=== PATIENT | female | born 1995 | race Hispanic/Latino ===

== ENCOUNTER 2018-11-17 17:51 | Inpatient (IN) ==
[2018-11-17] MEDS ORDERED: PEPCID PO PRN (18:23)
[2018-11-17] MEDS ORDERED: KEFZOL 1 GM/D5W 1 GM/50 ML IVPB IV PRN (18:23)
[2018-11-17] MEDS ORDERED: PEPCID IV PRN (18:23)
[2018-11-17] MEDS ORDERED: PEPCID PO ONE (18:23)
[2018-11-17] MEDS ORDERED: STADOL IV PRN (18:23)
[2018-11-17] MEDS ORDERED: AMPICILLIN 2 GM/NS 2 GM/100 ML IVPB IV ONE (18:23)
[2018-11-17] MEDS ORDERED: ZOFRAN IV PRN (18:23)
[2018-11-17] MEDS ORDERED: REGLAN PO ONE (18:23)
[2018-11-17] MEDS ORDERED: LR 1,000 ML IV SCH (18:30)
[2018-11-17] MEDS ORDERED: PITOCIN 30 UNITS/NS 30 UNIT/500 ML IV.SOLN IV SCH ×2 (18:30→23:45)
[2018-11-17] MEDS ORDERED: SODIUM CHLORIDE 0.9% INJ SCH (18:30)
[2018-11-17] MEDS ORDERED: MINERAL OIL TOP PRN (18:45)
[2018-11-17] MEDS ORDERED: XYLOCAINE-MPF 1% INJ PRN ×2 (18:46→23:33)
[2018-11-17 19:16] LABS: BASO# 0.01 X1000 (0.0-0.2); BASO% 0.1 % (0.0-0.8); EOS# 0.03 X1000 (0.0-0.7); EOS% 0.3 % (0.0-10.0); HEMOGLOBIN 7.7 g/dL (12.0-16.0); LYMPH# 1.89 X1000 (1.2-3.4); LYMPH% 18.3 % (20.5-51.1); MCH 20.5 PG (27-31); MCHC 29.6 g/dL (33-37); MCV 69.3 FL (81-99); MONO# 0.82 X1000 (0.11-0.59); MONO% 7.9 % (1.7-9.3); NEUT# 7.47 X1000 (1.4-6.5); NEUT% 72.4 % (42.2-75.2); PLT 284 X1000 (130-400); RBC 3.75 XMIL (4.2-5.4); RDW 17.6 % (11.5-14.5); WBC 10.32 X1000 (4.8-10.8)
[2018-11-17 19:36] LABS: LYMPHS 19 % (21-51); MONO 8 % (1-9); SEGS 73 % (42-75)
[2018-11-17 19:39] LABS: RAPID HIV PRESUMPTIVE NEGATIVE; RPR NON-REACTIVE (NONREACTIVE)
--- NOTE | 2018-11-17 20:34 | Diag Imaging Result Doc PS360 ---
EXAM: US OBS COMPLETE > 14 WKS 11/17/2018 HISTORY: in labor/dates STAT TECHNIQUE: OB ultrasound transabdominal scan COMMENT: This is the third study for this . Previous examinations were performed on 06/25/2018 and 08/09/2018. There is a viable fetus with a heart rate of 136 bpm in cephalic presentation. The cervix is not well demonstrated. The amniotic fluid volume is within normal limits. The placenta is anterior and there is no evidence of placenta previa. Based on multiple parameters the estimated weight is 3689 g +/- 428 g. Based on the earliest available study on 06/25/2018 the estimated date of delivery is 11/23/2018. The gestational age would therefore be 39 weeks one day. There is a three-vessel cord, four chambered heart, normal bladder, kidneys, stomach, and spine. IMPRESSION: Viable intrauterine gestation at 39 weeks one day by previous ultrasound. Electronically signed by Monty Glasgow 11/17/2018 8:31 PM
--- NOTE | 2018-11-17 21:30 | HISTORY AND PHYSICAL ---
HISTORY OF PRESENT ILLNESS: The patient is a 23-year-old, G4, P3-0-0-3, who presents to Labor and Delivery in early labor at 38 weeks and 5 days. The patient reports having care with [facility], Dr. Koroma, but currently no longer receiving care since the last week Tuesday. Reports contractions occurring about 10 minutes and lower abdominal pain. Denies leakage of fluid or vaginal bleeding. Admits to good movement. PAST MEDICAL HISTORY: Noncontributory, none. SURGICAL HISTORY: None. GYNECOLOGICAL HISTORY: Denies STD exposure. Menarche at age 11. MEDICATIONS: vitamins. ALLERGIES: No known drug allergies. FAMILY HISTORY: Noncontributory. SOCIAL HISTORY: Denies tobacco, alcohol, or drug use. PHYSICAL EXAMINATION: VITAL SIGNS: Temperature 98 degrees Fahrenheit, pulse rate 76, respiration rate 18, blood pressure 108/66, O2 saturation 97% on room air. Weight 180 pounds. Height 5 feet 6 inches. BMI 27.2 kg/m2. GENERAL: No acute distress. Awake, alert, oriented x3. CARDIOVASCULAR: Regular rate and rhythm. RESPIRATORY: Clear to auscultation bilaterally. ABDOMEN: Gravid. Fundal height 38 cm. Nontender to palpation. EXTREMITIES: Negative calf tenderness. Sterile vaginal exam, 4 cm dilated, 80% effaced, -2 station, intact membranes. Electronic monitoring, category 1 tracing, [place] q.10 minutes. LABORATORY: WBC is 10.32, hemoglobin 7.7, hematocrit 26, platelets 284,000. RPR nonreactive. HIV negative. Rubella immunity is pending. GBS status unknown. ASSESSMENT: Ms. Calvillo is a 23-year-old, 4, para 3-0-0-3, at 38 weeks and 5 days, who presents to Labor and Delivery in early labor. PLAN: 1. Admit to Labor and Delivery. 2. Obtain routine labor labs. 3. IV ampicillin for GBS status unknown per hospital protocol. 4. Continuous monitoring. 5. Augmentation with Pitocin and possible artificial rupture of membranes. 6. Estimated weight, 7 pounds. 7. Anticipate spontaneous vaginal delivery.
[2018-11-17 22:14] LABS: RUBELLA SCREEN IMMUNE (IMMUNE)
[2018-11-17] MEDS ORDERED: AMPICILLIN 1 GM/NS 1 GM/50 ML IVPB IV SCH (22:24)
[2018-11-17] MEDS ORDERED: BOOSTRIX VACCINE IM ONE (23:33)
[2018-11-17] MEDS ORDERED: HYDROXYZINE IM PRN (23:33)
[2018-11-17] MEDS ORDERED: PITOCIN IM PRN (23:33)
[2018-11-17] MEDS ORDERED: AMBIEN PO PRN (23:33)
[2018-11-17] MEDS ORDERED: ATARAX PO PRN (23:33)
[2018-11-17] MEDS ORDERED: CYTOTEC PO PRN (23:33)
[2018-11-17] MEDS ORDERED: MINERAL OIL PO PRN (23:33)
[2018-11-17] MEDS ORDERED: M-M-R II VACCINE SUBQ ONE (23:33)
[2018-11-17] MEDS ORDERED: BENADRYL IV PRN (23:33)
[2018-11-17] MEDS ORDERED: PERI MEDS (DERMOPLAST/NUPERCAINAL/TUCKS) MISC PRN (23:33)
[2018-11-17] MEDS ORDERED: PITOCIN 20 UNITS/NS 20 UNITS/1,000 ML IV.SOLN IV SCH (23:45)
--- NOTE | 2018-11-18 00:05 | OPERATIVE NOTE ---
PROCEDURE DATE: 11/17/2018 SURGEON: Jamie Gutierrez DO. PROCEDURE PERFORMED: Spontaneous vaginal delivery. DESCRIPTION OF PROCEDURE: At 23:13 the patient delivered a viable male infant at 38 weeks and 5 days, weighing 7 pounds 9 ounces with Apgars of 9 and 10 at 1 and 5 minutes respectively. The vertex was delivered spontaneously over an intact perineum. No nuchal cord was identified. The anterior shoulders were delivered atraumatically by maternal expulsive efforts. With the assistance of downward traction the posterior shoulder delivered with maternal expulsive efforts and upward traction. The remainder of the fetus delivered spontaneously. Upon delivery the cord was clamped and cut. The infant was passed to the waiting hydroelectric machinery mechanic helper staff. Cord blood was obtained for blood gases. The placenta delivered spontaneously intact with a three-vessel cord. To enhance uterine contraction IV oxytocin was administered. The cervix, vagina and perineum were inspected for lacerations. A first-degree laceration was noted along the vaginal tissue along the medial lateral left area. Laceration was repaired with 2-[address] needle in a running nonlocking fashion to reapproximate the laceration in layers. Good hemostasis was confirmed. ESTIMATED BLOOD LOSS: 250 mL.
[2018-11-18] MEDS: MOTRIN PO PRN ×3 (00:22→19:15)
[2018-11-18 02:18] LABS: URINE SOURCE VOIDED
[2018-11-18 02:37] LABS: BILIRUBIN URINE NEGATIVE (NEGATIVE); GLUCOSE URINE NEGATIVE (NEGATIVE); KETONE URINE TRACE mg/dL (NEGATIVE)
[2018-11-18 04:46] LABS: BLOOD URINE 4+ (NEGATIVE); CLARITY SL. CLOUDY (CLEAR); COLOR RED; LEUKOCYTES URINE TRACE (NEGATIVE); NITRITE URINE NEGATIVE (NEGATIVE); PROTEIN URINE TRACE mg/dL (NEGATIVE); UROBILINOGEN URINE NORMAL
[2018-11-18 06:33] LABS: BASO# 0.01 X1000 (0.0-0.2); BASO% 0.1 % (0.0-0.8); EOS# 0.01 X1000 (0.0-0.7); EOS% 0.1 % (0.0-10.0); HEMATOCRIT 26.3 % (37.0-47.0); HEMOGLOBIN 7.6 g/dL (12.0-16.0); IMM GRAN# 0.05 X1000 (0.0-0.04); IMM GRAN% 0.4 % (0.0-0.5); LYMPH# 1.75 X1000 (1.2-3.4); LYMPH% 13.6 % (20.5-51.1); MCH 20.1 PG (27-31); MCHC 28.9 g/dL (33-37); MCV 69.6 FL (81-99); MONO# 0.77 X1000 (0.11-0.59); NEUT# 10.28 X1000 (1.4-6.5); NEUT% 79.8 % (42.2-75.2); PLT 257 X1000 (130-400); RBC 3.78 XMIL (4.2-5.4); RDW 17.6 % (11.5-14.5); WBC 12.87 X1000 (4.8-10.8)
[2018-11-18 07:17] LABS: SEGS 80 % (42-75)
[2018-11-18 07:18] LABS: LYMPHS 14 % (21-51); MONO 6 % (1-9)
[2018-11-18] MEDS: FERROUS SULFATE PO SCH (08:21)
[2018-11-18] MEDS ORDERED: MAALOX PLUS LIQUID PO ONE (10:25)
[2018-11-18] MEDS: TYLENOL PO PRN ×2 (11:50→23:05)
[2018-11-18] MEDS: BENADRYL PO PRN ×2 (11:50→23:05)
[2018-11-18 18:56] LABS: HIV ANTIBODY SCREEN SEE COMMENTS
[2018-11-18] MEDS: PERICOLACE PO SCH (23:05)
--- NOTE | 2018-11-19 07:34 | OB/GYN PROGRESS NOTE ---
Progress Note OB - . Patient Problems: Current Active Problems Problem Status Onset Vaginal delivery Acute OB Progress Note: Vital Signs - 24 hr 11/18/18 10:16 11/18/18 16:05 11/18/18 20:21 Temperature 98.2 F 98.1 F 97.6 F Pulse Rate 57 L 63 59 L Respiratory Rate 18 14 16 Blood Pressure 101/64 103/58 98/63 O2 Sat by Pulse Oximetry 98 98 98 11/19/18 00:00 Temperature 98.0 F Pulse Rate 57 L Respiratory Rate 16 Blood Pressure 123/67 O2 Sat by Pulse Oximetry 98 Laboratory Results - last 24 hr 11/17/18 19:39 HIV 1&2 Antibody Screen SEE COMMENTS HPI: Pt seen and examined. Currently w/o complaints. Pain well controlled. Ambulating and urinating w/o difficulty. Tolerating regualr diet. Denies nausea/vomiting. +Bottle feeding, decreased lochia. VS: please see abive GEN: NAD CV: RRR, +S1S2 RESP: CTA b/l ABD: soft, NTTP FF below umbilicus EXT: neg CT LABS: please see above ASSESSMENT: 23yo PPD#2 s/p PLAN: -con't routine PP care -delivery after 11 pm on 11/17/18, plan for d/c home tomorrow
[2018-11-19] MEDS: FERROUS SULFATE PO SCH (08:14)
[2018-11-19] MEDS: MOTRIN PO PRN ×2 (08:14→20:35)
[2018-11-19 09:43] LABS: HEPATITIS B SURFACE ANTIGEN SEE COMMENTS
[2018-11-19] MEDS: TYLENOL PO PRN ×2 (14:20→20:34)
[2018-11-19] MEDS: BENADRYL PO PRN (20:35)
[2018-11-19] MEDS: PERICOLACE PO SCH (20:35)
--- NOTE | 2018-11-20 08:02 | OB/GYN PROGRESS NOTE ---
Progress Note OB - . Patient Problems: Current Active Problems Problem Status Onset Vaginal delivery Acute OB Progress Note: Vital Signs - 24 hr 11/19/18 08:00 11/19/18 14:18 11/19/18 23:00 Temperature 96.8 F L 96.8 F L Pulse Rate 52 L 56 L Respiratory Rate 14 16 18 Blood Pressure 109/69 116/71 O2 Sat by Pulse Oximetry 99 99 Laboratory Results - last 24 hr 11/17/18 18:30 Hep Bs Antigen SEE COMMENTS PPD 3 without difficulty. Pt had a normal recovery period and is stable for discharge home. She will f/u with Dr Sequeira in 6 weeks. Fundus is firm and nontender. No calf tenderness. Nurse reports normal amt of lochia. A/P: Stable for discharge home.
[2018-11-20] MEDS: FERROUS SULFATE PO SCH (14:14)
[2018-11-20] MEDS: MOTRIN PO PRN (14:29)
[2018-11-20 16:51] VITALS: BP 119/79
== END 2018-11-20 15:00 | disposition home or self-care (01) | DRG 807 ==
LOC: P.OPLD 17:51 → P.LD 17:52
PROVIDERS: ADMIT Obstetrics & Gynecology; ATTEND Obstetrics & Gynecology